=== PATIENT | male | born 1970 | race Caucasian/White ===

== ENCOUNTER 2021-07-20 09:51 | Emergency (ER) | payer OTHER ==
[~2021-07-20] VITALS: Ht 172.7 cm; Wt 86.2 kg
== END 2021-07-20 13:02 | disposition home or self-care (01) ==
LOC: FER 09:51
DX: S61.512A Laceration without foreign body of left wrist, initial encounter (principal); F17.210 Nicotine dependence, cigarettes, uncomplicated; Z23 Encounter for immunization; W45.8XXA Other foreign body or object entering through skin, initial encounter; Y92.89 Other specified places as the place of occurrence of the external cause; Y99.0 Civilian activity done for income or pay
CPT/HCPCS: 90471; 90715